=== PATIENT | male | born 1945 | race Caucasian/White ===

== ENCOUNTER 2016-12-19 08:22 | Day surgery (SDC) | payer MEDICARE, OTHER ==
[~2016-12-19 08:22] MED LIST: Lactated Ringers 1,000 ML IV SCH
[2016-12-19] MEDS ORDERED: Propofol 200 MG/20 ML SDV ONE (09:16)
[2016-12-19] MEDS ORDERED: Midazolam 1 MG/ML 2 ML SDV ONE (09:16)
[2016-12-19] MEDS ORDERED: fentaNYL 100 MCG/2 ML SDV ONE (09:16)
--- NOTE | 2016-12-19 14:03 | OR ---
DATE OF SURGERY: 12/19/2016. REFERRING PROVIDER: Brock Mendieta MD. PREOPERATIVE DIAGNOSIS: Positive family history of colon cancer in patient's mother. The patient's last colonoscopy was in 2007 and was normal per patient report. POSTOPERATIVE DIAGNOSES: 1. Subtle, sessile polypoid tissue at 90 cm. This was unable to be snared as it was too flat. Multiple cold biopsies were taken. We will await results of this. This may require early followup. 2. 2 moderate left-sided diverticulosis. PROCEDURE: Colonoscopy with cold biopsies x1 site. SURGEON: Robert Cline M.D. ANESTHESIA: Monitored anesthesia care. BOWEL PREP: Good. Inder is a 71-year-old male was brought to the endoscopy suite after discussing risks and benefits of the procedure. Informed consent was obtained for conscious sedation and colonoscopy with or without biopsy and/or polypectomy. We also discussed possibility of missed lesions. Pre-procedure exam was unremarkable. IV, oxygen, and monitors were placed. The patient was placed in the left lateral decubitus position. Sedation was administered and a digital rectal exam was performed which was unremarkable. Colonoscope was passed into the rectum and slowly advanced all the way to the cecum. Cecum was viewed and photographed. The colonoscope was slowly withdrawn and the mucosa was closed observed in a direct circumferential manner. The ascending colon was unremarkable. The transverse colon was near the hepatic flexure revealed a subtle, sessile polypoid area of tissue at 90 cm. This was photographed. I did try and snare the area, but it was much too flat. Multiple bites using the cold forceps were taken and we will see what this shows. If adenomatous in nature, this may require early followup and possible endoscopic mucosal resection in the future. The descending colon and sigmoid colon were remarkable for some moderate diverticulosis mainly in the sigmoid. Retroflexion was performed and rectal mucosa was unremarkable. Scope was removed. The patient tolerated the procedure well. The patient was monitored until that baseline status. Discharge instructions were reviewed and the patient was discharged in good condition. COMPLICATIONS: None. TOTAL TIME: 29 minutes. ESTIMATED BLOOD LOSS: About 1 mL. RECOMMENDATIONS/FOLLOW-UP: We will await results of path report to determine ideal followup interval. I would like the patient to hold his aspirin for 3 days to limit any chance of bleeding. I would like to kindly thank Dr. Mendieta for this referral. DMB: 12/19/2016 12:44:26 MODL: 12/19/2016 13:50:24 /[id number]
== END 2016-12-19 12:00 | disposition home or self-care (01) ==
LOC: VM.SDS 08:22
PROVIDERS: ATTEND Family Medicine
DX: Z12.11 Encounter for screening for malignant neoplasm of colon (principal); D12.6 Benign neoplasm of colon, unspecified; K57.30 Diverticulosis of large intestine without perforation or abscess without bleeding; I10 Essential (primary) hypertension; E78.5 Hyperlipidemia, unspecified; E11.9 Type 2 diabetes mellitus without complications; G47.33 Obstructive sleep apnea (adult) (pediatric); E79.0 Hyperuricemia without signs of inflammatory arthritis and tophaceous disease; Z80.0 Family history of malignant neoplasm of digestive organs; Z88.8 Allergy status to other drugs, medicaments and biological substances; Z79.82 Long term (current) use of aspirin; Z79.899 Other long term (current) drug therapy; Z98.890 Other specified postprocedural states
CPT/HCPCS: 00810; 45380; J2250; J2704; J3010; J7120; 88305

== ENCOUNTER 2024-10-25 19:53 | Emergency (ER) | payer MEDICARE, OTHER ==
[2024-10-25] MEDS: Nitroglycerin 0.4 MG Tab.SL SL ONE (20:02)
[2024-10-25 20:06] LABS: BASOPHILS ABSOLUTE AUTO 0.0 x10^3/uL (0.0-0.2); BASOPHILS PERCENT AUTO 0.3 % (0.2-1.2); EOSINOPHILS ABSOLUTE AUTO 0.1 x10^3/uL (0.0-0.5); EOSINOPHILS PERCENT AUTO 0.8 % (0.0-4.0); IMMATURE GRAN ABSOLUTE AUTO 0.01 x10^3/uL (0.00-0.07); IMMATURE GRAN PERCENT AUTO 0.10 % (0.00-0.43); LYMPHOCYTES ABSOLUTE AUTO 2.4 x10^3/uL (1.0-4.8); LYMPHOCYTES PERCENT AUTO 26.1 % (25.0-50.0); MONOCYTES ABSOLUTE AUTO 0.8 x10^3/uL (0.0-0.8); MONOCYTES PERCENT AUTO 9.1 % (2.0-11.0); NEUTROPHILS ABSOLUTE AUTO 5.9 x10^3/uL (1.8-7.7); NEUTROPHILS PERCENT AUTO 63.6 % (50.0-80.0); PLATELET COUNT,PLT 187 x10^3/uL (130-400); RED BLOOD CELL COUNT 5.13 x10^6/uL (4.5-6.0); WHITE BLOOD CELL COUNT,WBC 9.2 x10^3/uL (4.0-10.0)
[2024-10-25] MEDS: Metoprolol Tartrate 5 MG/5 ML SDV IVPUSH ONE (20:08)
[2024-10-25 20:28] LABS: A/G RATIO 1.69; ALANINE AMINOTRANSFERASE,ALT 27 U/L (16-63); ASPARTATE AMNIOTRANSFERASE,AST 31 U/L (15-37); BILIRUBIN TOTAL 1.1 mg/dL (0.2-1.0); BLOOD UREA NITROGEN,BUN 22 mg/dL (7-18); CARBON DIOXIDE,CO2 23 mmol/L (21-32); CHLORIDE,CL 104 mmol/L (98-107); CREATININE 1.5 mg/dL (0.70-1.30); ESTIMATED GFR 47 mL/min (>=60); GLUCOSE RANDOM 212 mg/dL (70-99); POTASSIUM,K 3.8 mmol/L (3.5-5.1); PRO B-TYPE NATRIUR PEPT,BNPPRO 1231 pg/mL (<=450); PROTEIN TOTAL,TP 7.8 g/dL (6.4-8.2); SODIUM,NA 144 mmol/L (136-145)
[2024-10-25] MEDS: Heparin Sodium 5,000 Units/ML Vial IVPUSH ONE (20:49)
[2024-10-25] MEDS: Heparin Sodium/0.45% NaCl 25,000 UNITS/250 ML BAG IV SCH (20:50)
== END 2024-10-25 22:36 | disposition short-term general hospital (02) ==
LOC: VM.ED 19:53
DX: I21.4 Non-ST elevation (NSTEMI) myocardial infarction (principal); I10 Essential (primary) hypertension; E11.40 Type 2 diabetes mellitus with diabetic neuropathy, unspecified; Z79.899 Other long term (current) drug therapy; Z79.82 Long term (current) use of aspirin; Z88.8 Allergy status to other drugs, medicaments and biological substances
CPT/HCPCS: 71045; 80053; 83690; 83735; 83880; 84484; 85025; 93005; 96365; 96366; 96374; 99285; A9270; J1644; J3490; 93010; 99284